=== PATIENT | female | born 1950 | race Caucasian/White ===

== ENCOUNTER → 2020-11-18 16:34 | Outpatient (BNVA) | payer MEDICARE, SELFPAY | PROVIDERS: Family Provider Nurse Practitioner; Visit Provider Nurse Practitioner | DX: Z20.828 Contact with and (suspected) exposure to other viral communicable diseases (principal); R11.2 Nausea with vomiting, unspecified; R42 Dizziness and giddiness | CPT/HCPCS: 87400; 87635 ==

== ENCOUNTER → 2021-02-27 09:03 | Outpatient (BNVA) | payer MEDICARE, SELFPAY | PROVIDERS: Family Provider Nurse Practitioner; Visit Provider Nurse Practitioner | DX: Z13.6 Encounter for screening for cardiovascular disorders (principal); Z85.3 Personal history of malignant neoplasm of breast; Z78.9 Other specified health status | CPT/HCPCS: 71046; 80053; 80061; 81000; 84443; 85025 ==

== ENCOUNTER → 2022-02-06 10:27 | Outpatient (BNVA) | payer MEDICARE, SELFPAY | PROVIDERS: Family Provider Nurse Practitioner; Visit Provider Nurse Practitioner | DX: Z13.6 Encounter for screening for cardiovascular disorders (principal); Z85.3 Personal history of malignant neoplasm of breast; K64.4 Residual hemorrhoidal skin tags | CPT/HCPCS: 80053; 80061; 85025 ==

== ENCOUNTER → 2023-03-29 14:09 | Outpatient (BNVA) | payer MEDICARE, SELFPAY | PROVIDERS: Family Provider Nurse Practitioner; Visit Provider Nurse Practitioner | DX: Z00.00 Encounter for general adult medical examination without abnormal findings (principal); Z13.6 Encounter for screening for cardiovascular disorders; Z85.3 Personal history of malignant neoplasm of breast; Z13.228 Encounter for screening for other metabolic disorders | CPT/HCPCS: 80053; 80061; 82607; 85025 ==

== ENCOUNTER → 2024-03-28 14:39 | Outpatient (BNVA) | payer MEDICARE, SELFPAY | PROVIDERS: Family Provider Nurse Practitioner; PCP Nurse Practitioner; Visit Provider Nurse Practitioner | DX: E55.9 Vitamin D deficiency, unspecified (principal) | CPT/HCPCS: 80053; 82306; 83735 ==

== ENCOUNTER 2024-04-04 08:15 | Outpatient (CLI) | payer MEDICARE, SELFPAY ==
--- NOTE | 2024-04-04 08:19 | XR_ITS ---
WS: [id number] Exam: XR cervical spine 3V* [id number] Date/Time of Exam: 04/04/2024 8:20 AM Reason For Exam: Z85.3 - Personal history of malignant neoplasm of breast No acute fracture or dislocation. There appear to be lytic lesions in the fourth fifth and sixth cerv ical vertebra. Mild degenerative anterolisthesis of C3 on C4. Degenerative disc changes from C3-C7. W ith mild spondylosis. Facet DJD at all levels. Straightening and reversal of the normal cervical C cu rve. Paraspinal soft tissues are unremarkable. Again noted are nodules in the visualized RIGHT upper lung zone. There may be some osseous destruction of the posterior RIGHT fourth rib. Recommendations: Further work-up with CT and/or nuclear bone scan could be considered. XR/XR cervical spine 3V* [id number] IMPRESSION: 1. Lytic defects in the fourth, fifth and 6 cervical vertebral bodies that may represent bone metastasis. 2. Degenerative changes as detailed above. 3. Nodules visualized in the RIGHT upper lung zone. There may be bone destructi on of the posterior RIGHT fourth rib.
--- NOTE | 2024-04-04 08:19 | XR_ITS ---
WS: [id number] Exam: XR shoulder RT min 2V* [id number] Date/Time of Exam: 04/04/2024 8:20 AM Reason For Exam: Z85.3 - Personal history of malignant neoplasm of breast No fracture or dislocation. Advanced degenerative narrowing of the glenohumeral joint with bone-on-pramod ne. Large osteophyte along the medial aspect of the humeral head. Osteopenia. No obvious bone destruc tion. Multiple nodules identified in the visualized RIGHT upper lung zone. This is suspicious for pul monary metastasis. Surgical clips along the RIGHT axilla. Recommendations: A detailed PA and lateral chest radiograph is suggested for follow-up. XR/XR shoulder RT min 2V* [id number] IMPRESSION: 1. Advanced degenerative change of the glenohumeral joint with [id number]. Os teopenia. 2. Numerous soft tissue nodules in the visualized RIGHT upper lung zone that ma y represent pulmonary metastatic disease.
--- NOTE | 2024-04-04 08:19 | XRR_ITS ---
PROCEDURE INFORMATION: Exam: XR Right Wrist Exam date and time: 04/04/2024 8:24 AM Age: 73 years old Clinical indication: Pain; Wrist; Right; Patient HX: Checking for bone cancer, limited mobility in RT arm; Additional info: Z85.3 - personal history of malignant neoplasm of breast TECHNIQUE: Imaging protocol: Radiologic exam of the right wrist. Views: 3 or more views. COMPARISON: No relevant prior studies available. FINDINGS: Bones/joints: Mild diffuse degenerative changes throughout the wrist, most prominent at the 1st carpometacarpal joint and at the radiocarpal joint. No acute fracture or dislocation. Soft tissues: Visualized soft tissues are within normal limits. XR/XR wrist RT min 3V* [id number] IMPRESSION: 1. Mild diffuse degenerative changes throughout the wrist, most prominent at the 1st carpometacarpal joint and at the radiocarpal joint. 2. No obvious osseous metastatic lesion.
--- NOTE | 2024-04-04 08:19 | XR_ITS ---
WS: [id number] Exam: [place] [id number] Date/Time of Exam: 04/04/2024 8:20 AM Reason For Exam: Z85.3 - Personal history of malignant neoplasm of breast No fracture or dislocation. Advanced degenerative changes at the RIGHT shoulder as previously describ ed. Soft tissues are unremarkable. No obvious bone destruction. IMPRESSION1. No fracture or bone destruction. 2. 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
== END 2024-04-04 08:16 | disposition home or self-care (01) ==
LOC: RAD 08:18
PROVIDERS: Family Provider Nurse Practitioner; PCP Nurse Practitioner; Visit Provider Nurse Practitioner
DX: Z85.3 Personal history of malignant neoplasm of breast (principal); M19.011 Primary osteoarthritis, right shoulder; M85.811 Other specified disorders of bone density and structure, right shoulder; R91.8 Other nonspecific abnormal finding of lung field; M50.30 Other cervical disc degeneration, unspecified cervical region
CPT/HCPCS: 72040; 73030; 73060; 73110

== ENCOUNTER 2024-04-11 08:38 | Outpatient (CLI) | payer MEDICARE, SELFPAY ==
--- NOTE | 2024-04-11 09:00 | PETR_ITS ---
PROCEDURE INFORMATION: Exam: PET/CT Skull Base to Mid-thigh Exam date and time: 04/11/2024 9:42 AM Age: 73 years old Clinical indication: Abnormal findings; Solitary pulmonary nodule; Patient HX: HX of breast cancer; Additional info: R91.1 - solitary pulmonary nodule, 2017 right breast cancer LABS AND CLINICAL REPORTS: Glucose: 112 mg/dl Treatment strategy for malignancy (PET staging): Initial Staging (PI) TECHNIQUE: Imaging protocol: Following at least four-hour fasting and following the injection of radiopharmaceutical, low dose CT images were obtained. Then, PET images were obtained. Attenuation corrected images were constructed using the CT scan. Fused images of PET and CT were reviewed. The standardized uptake values (SUV) reported below are maximum values within a region of interest, expressed in gm/ml. Exam includes orbital meatal line to mid-thigh. Radiopharmaceutical: 13.3 mCi F-18 FDG (Fluorodeoxyglucose), IV. Time of imaging post radiopharmaceutical administration: 1 hour Injection site: Left antecubital COMPARISON: Right shoulder x-ray series and right humerus x-ray series 03/15/2024, the CR XR cervical spine 3V* [id number] 04/04/2024 8:24 AM, chest x-ray 02/27/2021 FINDINGS: Brain: Visualized brain has normal physiologic uptake. Dental: Uptake in the region of posterior left mandibular teeth is noted likely representing periodontal disease, SUV max 3.9. Pharynx: No abnormal uptake. Larynx: No abnormal uptake. Thyroid: Low-density nodularity of the bilateral thyroid lobes is noted without elevated uptake compatible with benign findings. Lungs, pleura and trachea: There are multifocal regions of lobulated nodular radiotracer avid pleural thickening throughout the right hemithorax, SUV max 14.0. This uptake is greatest within a region soft tissue density nodule where T in the anteromedial aspect of the right middle lobe on series 3, image 104 measuring 1.9 x 1.7 cm. A right lower lobe/right inferior perihilar solid nodule measures 1.9 x 1.4 cm on series 3, image 98, SUV max 8.2. Several solid pleural based nodules in the region of the right major and minor fissures and to a lesser extent along the left major fissure are noted, some of which are radiotracer avid on the right. For example, a nodule based on the major fissure measuring 1.5 x 1.2 cm on series 3, image 101 demonstrates an. A pleural based soft tissue density nodule in the anteromedial left upper lobe is not radiotracer avid, measuring 1.4 x 1.0 cm on series 3, image 100. A solid left lower lobe nodule is not radiotracer avid on series 3, image 84 measuring 6 mm. SUV max 4.4. A 0.7 x 0.1 cm nodule based on the major fissure on series 3, image 87 on the left is not radiotracer avid. Heart: Normal physiologic uptake. Mediastinal space: No abnormal uptake. Diaphragm: See Liver findings below. Liver: A focus of uptake at the junction of the anterior right hemidiaphragm and dome of the liver is noted without a well-defined correlating lesion on the CT images, SUV max 5.4 on series 12, image 115. Assessment of the liver parenchyma is limited by lack of intravenous contrast. There is a possible low-density lesion in the dome of the liver in this region measuring 2.4 cm in diameter. Gallbladder and biliary ducts: No abnormal uptake. Pancreas: No abnormal uptake. Spleen: No abnormal uptake. Adrenal glands: No abnormal uptake. Kidneys and ureters: Normal physiologic uptake. Stomach and bowel: No abnormal uptake. Vasculature: No abnormal uptake. There are diffuse atherosclerotic changes. Lymph nodes: A radiotracer avid pretracheal lymph node measures 1.9 cm on series 3, image 74, SUV max 12.0. Abnormal uptake in the right hilar region is noted, SUV max 8.7 on series 3, image 87 where there is evidence of an approximately 1.3 cm lymph node. Skeleton: Degenerative changes in the spine are present.The bones appear demineralized. Extensive right hip primary osteoarthritic changes are noted. Soft tissues: There are postoperative changes right axillary lymph node dissection and right mastectomy without elevated uptake in the operative beds. METRICS: Mediastinal blood pool: SUV max 1.9 PET/PET skull to thigh INIT [id number] IMPRESSION: 1. There are postoperative changes right axillary lymph node dissection and right mastectomy without elevated uptake in the operative beds. 2. Multifocal regions of radiotracer avid pleural based nodularity throughout the right hemithorax are noted compatible with malignancy. 3. A right lower lobe/inferior right perihilar nodule is radiotracer avid consistent with malignancy. Left-sided pulmonary nodules are not radiotracer avid. 4. Radiotracer avid mediastinal and right hilar lymphadenopathy is consistent with metastases. 5. Abnormal uptake at the junction of the right hemidiaphragm in the dome of the liver is noted compatible with a metastasis, with a possible corresponding lesion within the liver. Assessment of this region is limited without intravenous contrast. Consider dedicated CT or MRI of the abdomen with intravenous contrast for further assessment. 6. No evidence of radiotracer avid osseous metastases. 7. Additional nonurgent findings as detailed above.
== END 2024-04-11 08:39 | disposition home or self-care (01) ==
LOC: RAD 08:38
PROVIDERS: Family Provider Nurse Practitioner; PCP Nurse Practitioner; Visit Provider Nurse Practitioner
DX: R91.1 Solitary pulmonary nodule (principal); R93.7 Abnormal findings on diagnostic imaging of other parts of musculoskeletal system; Z90.11 Acquired absence of right breast and nipple; R93.2 Abnormal findings on diagnostic imaging of liver and biliary tract; R93.5 Abnormal findings on diagnostic imaging of other abdominal regions, including retroperitoneum
CPT/HCPCS: 78815; A9552

== ENCOUNTER 2024-04-27 16:00 | Oncology outpatient (recurring) (ONCR) | payer MEDICARE, SELFPAY ==
[2024-04-27 15:44] LABS: Basophils # 0.1 10^3/uL (0.0-0.1); Eosinophils # 0.2 10^3/uL (0.0-0.8); Eosinophils % 1.8 %; Hematocrit 35.1 % (36-47); Lymphocytes # 1.1 10^3/uL (0.8-4.8); Lymphocytes % 12.9 %; Mean Corpuscular HGB Conc 31.9 g/dL (30-55); Mean Corpuscular Hemoglobin 28.9 pg (27-33); Mean Corpuscular Volume 90.5 fl (85-98); Mean Platelet Volume 9.5 fL (7.4-10.4); Monocytes % 11.9 %; Neutrophils % 72.2 %; Nucleated Red Blood Cells % 0 %; Platelet Count 379 10^3/cmm (157-399); Red Blood Count 3.88 10^6/uL (3.85-5.65); Red Cell Distribution Width 14.7 % (12.1-15.1); White Blood Count 8.31 10^3/uL (3.29-11.43)
[2024-04-27 16:08] LABS: Alanine Aminotransferase 10 U/L (0-33); Albumin Level 4.2 g/dL (3.5-5.2); Alkaline Phosphatase 86 U/L (35-105); Anion Gap 16.3 (5-19); Aspartate Amino Transferase 25 U/L (0-32); Blood Urea Nitrogen 17 mg/dL (8-23); CA 15-3 43.5 U/mL (0-25); Calcium 9.4 mg/dL (8.5-10.5); Carbon Dioxide 25 mmol/L (22-29); Chloride 100 mmol/L (98-107); Creatinine Clr Calc Pharmacy 58.1739; Globulin 3.2 g/dL (1.3-4.6); Glucose 128 mg/dL (65-115); Osmolality Calculated 287 mOsm/kg (285-295); Potassium 4.3 mmol/L (3.5-5.1); Sodium 137 mmol/L (136-145); Total Bilirubin 0.2 mg/dL (0.15-1.2); Total Protein 7.4 g/dL (6.6-8.7)
== END 2024-05-10 23:59 | disposition home or self-care (01) ==
PROVIDERS: PCP Nurse Practitioner; Visit Provider Internal Medicine Medical Oncology
DX: Z53.9 Procedure and treatment not carried out, unspecified reason (principal); C50.411 Malignant neoplasm of upper-outer quadrant of right female breast
CPT/HCPCS: 36415; 80053; 85025; 86300; 99215

== ENCOUNTER 2024-05-17 13:05 | Outpatient (CLI) | payer MEDICARE, SELFPAY ==
--- NOTE | 2024-05-17 13:20 | XR_ITS ---
WS: [id number] DEXA (DUAL ENERGY X-RAY ABSORPTIOMETRY) Bone mineral density was performed using a Kigo machine. HISTORY: ASYMPTOMATIC MENOPAUSAL STATE COMPARISON: None available. Lumbar spine BMD (L1-L4): 0.835 g/cm2 T score: -2.9 Z score: -1.0 Total hip BMD: Left: 0.585 g/cm2. T score: -3.4 Z score: -1.7 Right: 0.627 g/cm2. T score: -3.0 Z score: -1.4 10 year probability of a major osteoporotic fracture is 23.7%. XR/XR DEXA axial skeleton* 00095 IMPRESSION: OSTEOPOROSIS based upon the WHO classification for females.
== END 2024-05-17 13:06 | disposition home or self-care (01) ==
LOC: RAD 13:07
PROVIDERS: PCP Nurse Practitioner; Visit Provider Internal Medicine
DX: Z13.820 Encounter for screening for osteoporosis (principal); Z78.0 Asymptomatic menopausal state; M81.0 Age-related osteoporosis without current pathological fracture
CPT/HCPCS: 77080

== ENCOUNTER 2024-09-05 08:45 | Oncology outpatient (recurring) (ONCR) | payer MEDICARE, SELFPAY ==
[2024-08-17 12:00] LABS: Basophils # 0.1 10^3/uL (0.0-0.1); Basophils % 2.8 %; Eosinophils # 0.1 10^3/uL (0.0-0.8); Eosinophils % 3.4 %; Hematocrit 35.5 % (36-47); Lymphocytes # 1.2 10^3/uL (0.8-4.8); Lymphocytes % 34.6 %; Mean Corpuscular HGB Conc 32.1 g/dL (30-55); Mean Corpuscular Volume 96.5 fl (85-98); Mean Platelet Volume 8.8 fL (7.4-10.4); Monocytes # 0.7 10^3/uL (0.2-0.9); Monocytes % 20.7 %; Neutrophils # 1.35 10^3/uL (1.8-7.7); Neutrophils % 38.2 %; Nucleated Red Blood Cells % 0 %; Platelet Count 296 10^3/cmm (157-399); Red Blood Count 3.68 10^6/uL (3.85-5.65); Red Cell Distribution Width 19.3 % (12.1-15.1); White Blood Count 3.53 10^3/uL (3.29-11.43)
[2024-08-17 12:24] LABS: Alanine Aminotransferase 28 U/L (0-33); Albumin Level 4.2 g/dL (3.5-5.2); Alkaline Phosphatase 74 U/L (35-105); Anion Gap 11.1 (5-19); Aspartate Amino Transferase 23 U/L (0-32); Blood Urea Nitrogen 17 mg/dL (8-23); CA 15-3 91.2 U/mL (0-25); Calcium 9.2 mg/dL (8.5-10.5); Carbon Dioxide 29 mmol/L (22-29); Chloride 102 mmol/L (98-107); Creatinine Clr Calc Pharmacy 50.7991; Globulin 2.2 g/dL (1.3-4.6); Glucose 76 mg/dL (65-115); Osmolality Calculated 286 mOsm/kg (285-295); Potassium 4.1 mmol/L (3.5-5.1); Sodium 138 mmol/L (136-145); Total Bilirubin 0.2 mg/dL (0.15-1.2); Total Protein 6.4 g/dL (6.6-8.7)
[2024-08-17 16:29] LABS: Ferritin 99 ng/mL (15-150); Iron 108 ug/dL (37-145); Lactate Dehydrogenase 160 U/L (135-214); Percent Saturation 36.8 % (20-50); Total Iron Binding Capacity 293 mcg/dl; Unsaturated Iron Binding 185 ug/dL (112-347)
[2024-08-17 16:32] LABS: Vitamin B12 761 pg/mL (232-1245)
[2024-08-17 17:07] LABS: Folate Level 16.9 ng/mL (4.8-37.3)
[2024-09-05 09:58] LABS: Basophils # 0.1 10^3/uL (0.0-0.1); Basophils % 4.2 %; Eosinophils # 0.1 10^3/uL (0.0-0.8); Eosinophils % 1.6 %; Hematocrit 36.4 % (36-47); Lymphocytes # 0.6 10^3/uL (0.8-4.8); Lymphocytes % 19.4 %; Mean Corpuscular Hemoglobin 31.9 pg (27-33); Mean Corpuscular Volume 96.8 fl (85-98); Mean Platelet Volume 8.9 fL (7.4-10.4); Monocytes # 0.3 10^3/uL (0.2-0.9); Neutrophils # 1.99 10^3/uL (1.8-7.7); Neutrophils % 64.5 %; Nucleated Red Blood Cells % 0 %; Platelet Count 386 10^3/cmm (157-399); Red Blood Count 3.76 10^6/uL (3.85-5.65); Red Cell Distribution Width 20.1 % (12.1-15.1); White Blood Count 3.09 10^3/uL (3.29-11.43)
[2024-09-05 10:25] LABS: Alanine Aminotransferase 30 U/L (0-33); Albumin Level 4.2 g/dL (3.5-5.2); Alkaline Phosphatase 74 U/L (35-105); Anion Gap 13.4 (5-19); Aspartate Amino Transferase 27 U/L (0-32); Blood Urea Nitrogen 14 mg/dL (8-23); CA 15-3 111.2 U/mL (0-25); Calcium 9.7 mg/dL (8.5-10.5); Carbon Dioxide 29 mmol/L (22-29); Chloride 102 mmol/L (98-107); Creatinine Clr Calc Pharmacy 63.4845; Globulin 2.8 g/dL (1.3-4.6); Glucose 107 mg/dL (65-115); Osmolality Calculated 291 mOsm/kg (285-295); Potassium 4.4 mmol/L (3.5-5.1); Sodium 140 mmol/L (136-145); Total Bilirubin 0.5 mg/dL (0.15-1.2)
[2024-09-05] MEDS: zoledronic acid 5 MG in empty flexible container 1 EACH 400 MG IV (11:17)
[2024-09-05 11:37] VITALS: BP 132/65; PULSE 65; RESP 16; TEMP 37.1; O2SAT 98
[2024-09-05] MEDS: fulvestrant 250 mg/5 mL Syringe 500 MG IM (12:10)
[2024-09-05 16:59] LABS: Magnesium 2.1 mg/dL (1.7-2.3); Thyroid Stimulating Hormone 0.95 uIU/mL (0.27-4.20); Vitamin B12 679 pg/mL (232-1245)
== END 2024-09-09 23:59 | disposition home or self-care (01) ==
PROVIDERS: Internal Medicine; Nurse Practitioner; PCP Nurse Practitioner; Visit Provider Internal Medicine Hematology & Oncology
DX: Z53.9 Procedure and treatment not carried out, unspecified reason (principal); C50.411 Malignant neoplasm of upper-outer quadrant of right female breast; C78.00 Secondary malignant neoplasm of unspecified lung; Z51.11 Encounter for antineoplastic chemotherapy; Z79.899 Other long term (current) drug therapy; Z90.11 Acquired absence of right breast and nipple; Z79.818 Long term (current) use of other agents affecting estrogen receptors and estrogen levels; Z17.0 Estrogen receptor positive status [ER+]; D64.9 Anemia, unspecified; R25.1 Tremor, unspecified; R53.83 Other fatigue; M81.0 Age-related osteoporosis without current pathological fracture
CPT/HCPCS: 36415; 80053; 82607; 82728; 82746; 83010; 83540; 83550; 83615; 83735; 84443; 85025; 86300; 96365; 96402; 99214; 99215; J3489; J9395

== ENCOUNTER 2024-10-05 10:15 | Oncology outpatient (recurring) (ONCR) | payer MEDICARE, SELFPAY ==
--- NOTE | 2024-09-22 12:00 | PETR_ITS ---
PROCEDURE INFORMATION: Exam: PET/CT Skull Base to Mid-thigh Exam date and time: 09/22/2024 1:12 PM Age: 74 years old Clinical indication: Condition or disease; Primary cancer: Breast cancer right; Follow-up oncological assessment; Prior surgery; Surgery date: 6+ months; Surgery type: Mastectomy; Additional info: Followup post 3 months of treatment and compare to April 2024 LABS AND CLINICAL REPORTS: Glucose: 111 mg/dl Treatment strategy for malignancy (PET staging): Restaging (PS) TECHNIQUE: Imaging protocol: Following at least four-hour fasting and following the injection of radiopharmaceutical, low dose CT images were obtained. Then, PET images were obtained. Attenuation corrected images were constructed using the CT scan. Fused images of PET and CT were reviewed. The standardized uptake values (SUV) reported below are maximum values within a region of interest, expressed in gm/ml. Exam includes orbital meatal line to mid-thigh. SUV normalization method: BodyWeight Radiopharmaceutical: 11.41 mCi F-18 FDG (Fluorodeoxyglucose), IV. Time of imaging post radiopharmaceutical administration: 49 minutes Injection site: left ac COMPARISON: PT PET skull to thigh INIT [id number] 04/11/2024 9:42 AM FINDINGS: Brain: Visualized brain has normal physiologic uptake. Teeth: Carious left molar with FDG uptake showing SUV max 8.5 on axial image 30. Pharynx: No abnormal uptake. Larynx: No abnormal uptake. Thyroid: Stable non FDG avid subcentimeter thyroid nodules require no dedicated imaging follow-up. Lungs, pleura and trachea: Significantly decreased FDG avid nodular right pleural thickening with index anteromedial right pleural thickening measuring 5 mm thickness with SUV max 5.8 on axial image 113, previously 14 mm with SUV max 14. Index posteromedial basal right pleural thickening measures 9 mm in thickness and shows SUV max 3.7 on axial image 125, previously 15 mm with SUV max 8.9. Index perifissural nodularity measures 6 mm thickness with SUV max 4.1 on axial image 111, previously 12 mm with SUV max 7.5. Stable non FDG avid 3 mm left upper lobe nodule on axial image 70. Stable intrapulmonary lymph node along the left major fissure without FDG avidity on axial image 94. Previous left lower lobe nodule has resolved. Heart: Normal physiologic uptake. Mediastinal space: No abnormal uptake. Liver: No abnormal uptake. Gallbladder and biliary ducts: No abnormal uptake. Pancreas: No abnormal uptake. Spleen: No abnormal uptake. Adrenal glands: No abnormal uptake. Kidneys and ureters: Normal physiologic uptake. Stomach and bowel: No abnormal uptake. Vasculature: No abnormal uptake. Mild systemic atherosclerotic calcification without aortic aneurysm. Lymph nodes: Decreased lower pretracheal node measuring 9 mm in the short axis on axial image 83 with SUV max 11.8, previously 18 mm with SUV max 12.0. Right hilar FDG uptake shows SUV max 8.5 on axial image 106 without discretely measurable node, previously 8.2. Developed subcarinal node uptake with SUV max 14.6, measures 8 mm in the short axis. Developed left hilar FDG uptake shows SUV max 3.7 on axial image 92 without discretely measurable node. Skeleton: Apparent FDG uptake at posteromedial right 5th rib shows SUV max 5.5 on axial image 68 with suggested lucency (axial image 69). Apparent development of nonaggressive lucent lesion at the anterior right 4th rib measures 1.2 cm in length with FDG uptake showing SUV max 4.2 on axial image 102. Degenerative changes along the spine, shoulders and hips. Soft tissues: No abnormal uptake in the visualized head, neck, chest, abdomen, pelvis, and extremities. Prior right mastectomy. Right axillary surgical clips. METRICS: Mediastinal blood pool: SUV mean 2.0 Liver uptake: SUV mean 2.1 PET/PET skull to thigh SUBS [id number] IMPRESSION: 1. Mixed treatment response. 2. Much improved right pleural metastatic disease. 3. Improved lower right paratracheal lymphadenopathy, decreased size FDG avid right hilar lymphadenopathy, and developed abnormal FDG uptake at subcarinal node as well as mildly at the left hilum. 4. Suspect metastatic lesions at the anterior right 4th and posteromedial right 5th ribs. 5. Dental disease with metabolically active carious left molar, possibly infectious or inflammatory.
[2024-09-28 13:13] LABS: Basophils # 0.1 10^3/uL (0.0-0.1); Basophils % 2.9 %; Eosinophils # 0.1 10^3/uL (0.0-0.8); Eosinophils % 2.9 %; Lymphocytes # 0.7 10^3/uL (0.8-4.8); Lymphocytes % 20.7 %; Mean Corpuscular HGB Conc 32.6 g/dL (30-55); Mean Corpuscular Hemoglobin 33.5 pg (27-33); Mean Corpuscular Volume 102.9 fl (85-98); Monocytes # 0.4 10^3/uL (0.2-0.9); Monocytes % 10.4 %; Neutrophils # 2.17 10^3/uL (1.8-7.7); Neutrophils % 62.5 %; Nucleated Red Blood Cells % 0 %; Platelet Count 418 10^3/cmm (157-399); Red Cell Distribution Width 19.1 % (12.1-15.1); White Blood Count 3.47 10^3/uL (3.29-11.43)
[2024-09-28 13:32] LABS: Slide Review Slide Review Perform
[2024-09-28 13:35] LABS: Alanine Aminotransferase 18 U/L (0-33); Albumin Level 4.2 g/dL (3.5-5.2); Alkaline Phosphatase 78 U/L (35-105); Anion Gap 10.3 (5-19); Blood Urea Nitrogen 13 mg/dL (8-23); CA 15-3 102.7 U/mL (0-25); Calcium 9.4 mg/dL (8.5-10.5); Carbon Dioxide 29 mmol/L (22-29); Chloride 103 mmol/L (98-107); Creatinine Clr Calc Pharmacy 63.4845; Globulin 2.9 g/dL (1.3-4.6); Glucose 121 mg/dL (65-115); Osmolality Calculated 287 mOsm/kg (285-295); Potassium 4.3 mmol/L (3.5-5.1); Sodium 138 mmol/L (136-145); Total Bilirubin 0.2 mg/dL (0.15-1.2); Total Protein 7.1 g/dL (6.6-8.7)
[2024-09-28 13:43] LABS: Aspartate Amino Transferase 23 U/L (0-32)
[2024-10-05 13:58] VITALS: BP 120/78; PULSE 78; RESP 18; TEMP 36.6; O2SAT 98
[2024-10-05] MEDS: fulvestrant 250 mg/5 mL Syringe 500 MG IM (13:58)
== END 2024-10-10 23:59 | disposition home or self-care (01) ==
PROVIDERS: Nurse Practitioner; PCP Nurse Practitioner; Visit Provider Internal Medicine
DX: Z51.11 Encounter for antineoplastic chemotherapy (principal); Z79.818 Long term (current) use of other agents affecting estrogen receptors and estrogen levels; C78.00 Secondary malignant neoplasm of unspecified lung; C50.411 Malignant neoplasm of upper-outer quadrant of right female breast; Z53.9 Procedure and treatment not carried out, unspecified reason
CPT/HCPCS: 36415; 78815; 80053; 85025; 86300; 96402; 99213; A9552; J9395

== ENCOUNTER 2024-11-02 10:55 | Oncology outpatient (recurring) (ONCR) | payer MEDICARE, SELFPAY ==
[2024-11-02 11:40] LABS: Basophils # 0.1 10^3/uL (0.0-0.1); Basophils % 3.2 %; Eosinophils # 0.1 10^3/uL (0.0-0.8); Hematocrit 33.7 % (36-47); Lymphocytes # 0.7 10^3/uL (0.8-4.8); Mean Corpuscular HGB Conc 33.2 g/dL (30-55); Mean Corpuscular Hemoglobin 35.4 pg (27-33); Mean Corpuscular Volume 106.6 fl (85-98); Mean Platelet Volume 8.9 fL (7.4-10.4); Monocytes # 0.4 10^3/uL (0.2-0.9); Monocytes % 10.2 %; Neutrophils # 2.22 10^3/uL (1.8-7.7); Nucleated Red Blood Cells % 0 %; Platelet Count 252 10^3/cmm (157-399); Red Blood Count 3.16 10^6/uL (3.85-5.65); Red Cell Distribution Width 15.3 % (12.1-15.1); White Blood Count 3.42 10^3/uL (3.29-11.43)
[2024-11-02 11:58] LABS: Alanine Aminotransferase 20 U/L (0-33); Alkaline Phosphatase 64 U/L (35-105); Anion Gap 16.2 (5-19); Aspartate Amino Transferase 24 U/L (0-32); Blood Urea Nitrogen 17 mg/dL (8-23); Calcium 8.9 mg/dL (8.5-10.5); Carbon Dioxide 24 mmol/L (22-29); Chloride 101 mmol/L (98-107); Creatinine Clr Calc Pharmacy 58.9696; Globulin 2.5 g/dL (1.3-4.6); Glucose 113 mg/dL (65-115); Osmolality Calculated 286 mOsm/kg (285-295); Potassium 4.2 mmol/L (3.5-5.1); Sodium 137 mmol/L (136-145); Total Bilirubin 0.3 mg/dL (0.15-1.2); Total Protein 6.5 g/dL (6.6-8.7)
[2024-11-02] MEDS: fulvestrant 250 mg/5 mL Syringe 500 MG IM (13:27)
[2024-11-03 12:03] LABS: CA 15-3 73.1 U/mL (0-25); Lactate Dehydrogenase 242 U/L (135-214)
== END 2024-11-10 23:59 | disposition home or self-care (01) ==
PROVIDERS: PCP Nurse Practitioner; Visit Provider Internal Medicine
DX: Z51.11 Encounter for antineoplastic chemotherapy (principal); C78.01 Secondary malignant neoplasm of right lung; C79.89 Secondary malignant neoplasm of other specified sites; Z85.3 Personal history of malignant neoplasm of breast; M81.0 Age-related osteoporosis without current pathological fracture; D64.9 Anemia, unspecified; Z90.11 Acquired absence of right breast and nipple; Z79.818 Long term (current) use of other agents affecting estrogen receptors and estrogen levels; Z92.23 Personal history of estrogen therapy
CPT/HCPCS: 36415; 80053; 83615; 85025; 86300; 96402; 96409; 99213; J9395

== ENCOUNTER → 2024-11-20 08:20 | Outpatient (BNVA) | payer MEDICARE, SELFPAY | PROVIDERS: PCP Nurse Practitioner; Visit Provider Internal Medicine | DX: C50.919 Malignant neoplasm of unspecified site of unspecified female breast (principal); C78.00 Secondary malignant neoplasm of unspecified lung; R25.1 Tremor, unspecified; R53.83 Other fatigue | CPT/HCPCS: 80053; 85025; 86300 ==

== ENCOUNTER 2024-12-06 12:21 | Oncology outpatient (recurring) (ONCR) | payer MEDICARE, SELFPAY ==
[2024-12-06] MEDS: fulvestrant 250 mg/5 mL Syringe 500 MG IM (13:50)
[2024-12-06 13:55] LABS: Basophils % 1.5 %; Eosinophils % 0.8 %; Hematocrit 35.1 % (36-47); Lymphocytes % 38.5 %; Mean Corpuscular HGB Conc 33.3 g/dL (30-55); Mean Corpuscular Hemoglobin 35.7 pg (27-33); Mean Platelet Volume 8.7 fL (7.4-10.4); Monocytes # 0.7 10^3/uL (0.2-0.9); Monocytes % 24.5 %; Neutrophils % 34.7 %; Nucleated Red Blood Cells % 0 %; Platelet Count 209 10^3/cmm (157-399); Red Blood Count 3.28 10^6/uL (3.85-5.65); White Blood Count 2.65 10^3/uL (3.29-11.43)
[2024-12-06 13:57] LABS: Neutrophils # 0.92 10^3/uL (1.8-7.7)
[2024-12-06 14:30] LABS: Alanine Aminotransferase 25 U/L (0-33); Albumin Level 4.2 g/dL (3.5-5.2); Alkaline Phosphatase 70 U/L (35-105); Anion Gap 11.4 (5-19); Aspartate Amino Transferase 28 U/L (0-32); Blood Urea Nitrogen 12 mg/dL (8-23); CA 15-3 70.9 U/mL (0-25); Calcium 9.6 mg/dL (8.5-10.5); Carbon Dioxide 29 mmol/L (22-29); Chloride 105 mmol/L (98-107); Creatinine Clr Calc Pharmacy 59.3337; Globulin 2.7 g/dL (1.3-4.6); Glucose 98 mg/dL (65-115); Osmolality Calculated 292 mOsm/kg (285-295); Potassium 4.4 mmol/L (3.5-5.1); Sodium 141 mmol/L (136-145); Total Bilirubin 0.2 mg/dL (0.15-1.2); Total Protein 6.9 g/dL (6.6-8.7)
== END 2024-12-08 23:59 | disposition home or self-care (01) ==
PROVIDERS: Nurse Practitioner Family; PCP Nurse Practitioner; Visit Provider Internal Medicine
DX: Z51.11 Encounter for antineoplastic chemotherapy (principal); C50.411 Malignant neoplasm of upper-outer quadrant of right female breast; Z17.0 Estrogen receptor positive status [ER+]; C78.01 Secondary malignant neoplasm of right lung; C79.89 Secondary malignant neoplasm of other specified sites; M81.0 Age-related osteoporosis without current pathological fracture; D64.9 Anemia, unspecified; L85.8 Other specified epidermal thickening; Z79.818 Long term (current) use of other agents affecting estrogen receptors and estrogen levels; Z79.899 Other long term (current) drug therapy; Z90.11 Acquired absence of right breast and nipple; Z92.23 Personal history of estrogen therapy
CPT/HCPCS: 11102; 80053; 85025; 86300; 96402; 99203; 99214; J9395

== ENCOUNTER → 2024-12-14 08:09 | Outpatient (BNVA) | payer MEDICARE, SELFPAY | PROVIDERS: PCP Nurse Practitioner; Visit Provider Nurse Practitioner | DX: C50.411 Malignant neoplasm of upper-outer quadrant of right female breast (principal) | CPT/HCPCS: 85025 ==

== ENCOUNTER → 2024-12-25 11:14 | Outpatient (BNVA) | payer MEDICARE, SELFPAY | PROVIDERS: PCP Nurse Practitioner; Visit Provider Nurse Practitioner | DX: C50.411 Malignant neoplasm of upper-outer quadrant of right female breast (principal); C50.919 Malignant neoplasm of unspecified site of unspecified female breast; C78.00 Secondary malignant neoplasm of unspecified lung | CPT/HCPCS: 80053; 85025; 86300 ==

== ENCOUNTER → 2025-01-02 08:04 | Outpatient (BNVA) | payer MEDICARE, SELFPAY | PROVIDERS: PCP Nurse Practitioner; Visit Provider Dermatology | DX: D03.59 Melanoma in situ of other part of trunk (principal); C44.329 Squamous cell carcinoma of skin of other parts of face | CPT/HCPCS: 13132; 17311; 99213 ==

== ENCOUNTER 2025-01-03 13:24 | Oncology outpatient (recurring) (ONCR) | payer MEDICARE, SELFPAY ==
[2025-01-03] MEDS: fulvestrant 250 mg/5 mL Syringe 500 MG IM (14:49)
== END 2025-01-08 23:59 | disposition home or self-care (01) ==
PROVIDERS: PCP Nurse Practitioner; Visit Provider Internal Medicine
DX: Z51.11 Encounter for antineoplastic chemotherapy (principal); C50.411 Malignant neoplasm of upper-outer quadrant of right female breast; C78.01 Secondary malignant neoplasm of right lung; C43.59 Malignant melanoma of other part of trunk; Z17.0 Estrogen receptor positive status [ER+]; M81.0 Age-related osteoporosis without current pathological fracture; D64.9 Anemia, unspecified; Z90.11 Acquired absence of right breast and nipple; Z79.818 Long term (current) use of other agents affecting estrogen receptors and estrogen levels; Z79.899 Other long term (current) drug therapy; D70.1 Agranulocytosis secondary to cancer chemotherapy; T45.1X5A Adverse effect of antineoplastic and immunosuppressive drugs, initial encounter
CPT/HCPCS: 96402; 99213; J9395

== ENCOUNTER → 2025-01-23 08:11 | Outpatient (BNVA) | payer MEDICARE, SELFPAY | PROVIDERS: PCP Nurse Practitioner; Visit Provider Dermatology | DX: Z08 Encounter for follow-up examination after completed treatment for malignant neoplasm (principal); Z85.828 Personal history of other malignant neoplasm of skin; D03.59 Melanoma in situ of other part of trunk | CPT/HCPCS: 11603; 12032; 99212 ==

== ENCOUNTER → 2025-01-25 08:03 | Outpatient (BNVA) | payer MEDICARE, SELFPAY | PROVIDERS: PCP Nurse Practitioner; Visit Provider Nurse Practitioner | DX: C50.919 Malignant neoplasm of unspecified site of unspecified female breast (principal); C78.00 Secondary malignant neoplasm of unspecified lung | CPT/HCPCS: 80053; 85025; 86300 ==

== ENCOUNTER 2025-01-31 10:13 | Oncology outpatient (recurring) (ONCR) | payer MEDICARE, SELFPAY ==
[2025-01-31] MEDS: fulvestrant 250 mg/5 mL Syringe 500 MG IM (11:23)
== END 2025-02-07 23:59 | disposition home or self-care (01) ==
PROVIDERS: PCP Nurse Practitioner; Visit Provider Internal Medicine
DX: Z51.11 Encounter for antineoplastic chemotherapy (principal); C78.01 Secondary malignant neoplasm of right lung; C79.89 Secondary malignant neoplasm of other specified sites; C43.59 Malignant melanoma of other part of trunk; Z85.3 Personal history of malignant neoplasm of breast; R03.0 Elevated blood-pressure reading, without diagnosis of hypertension; M81.0 Age-related osteoporosis without current pathological fracture; D64.9 Anemia, unspecified; Z90.11 Acquired absence of right breast and nipple; Z79.818 Long term (current) use of other agents affecting estrogen receptors and estrogen levels
CPT/HCPCS: 96402; 99214; J9395

== ENCOUNTER → 2025-02-01 11:02 | Outpatient (BNVA) | payer MEDICARE, SELFPAY | PROVIDERS: PCP Nurse Practitioner; Visit Provider Dermatology | DX: Z08 Encounter for follow-up examination after completed treatment for malignant neoplasm (principal); Z86.006 Personal history of melanoma in-situ; Z85.828 Personal history of other malignant neoplasm of skin; L82.1 Other seborrheic keratosis; L81.4 Other melanin hyperpigmentation; L57.0 Actinic keratosis | CPT/HCPCS: 17000; 99213 ==

== ENCOUNTER → 2025-02-21 07:59 | Outpatient (BNVA) | payer MEDICARE, SELFPAY | PROVIDERS: PCP Nurse Practitioner; Visit Provider Nurse Practitioner | DX: L85.8 Other specified epidermal thickening (principal); C50.919 Malignant neoplasm of unspecified site of unspecified female breast; C78.00 Secondary malignant neoplasm of unspecified lung; D64.9 Anemia, unspecified; M81.0 Age-related osteoporosis without current pathological fracture; C50.411 Malignant neoplasm of upper-outer quadrant of right female breast | CPT/HCPCS: 80053; 83615; 85025 ==

== ENCOUNTER 2025-02-28 12:29 | Oncology outpatient (recurring) (ONCR) | payer MEDICARE, SELFPAY ==
[2025-02-28] MEDS: fulvestrant 250 mg/5 mL Syringe 500 MG IM (13:26)
== END 2025-03-10 23:59 | disposition home or self-care (01) ==
PROVIDERS: PCP Nurse Practitioner; Visit Provider Nurse Practitioner Family
DX: Z51.11 Encounter for antineoplastic chemotherapy (principal); C50.411 Malignant neoplasm of upper-outer quadrant of right female breast; C78.01 Secondary malignant neoplasm of right lung; C79.89 Secondary malignant neoplasm of other specified sites; M81.0 Age-related osteoporosis without current pathological fracture; D64.9 Anemia, unspecified; R03.0 Elevated blood-pressure reading, without diagnosis of hypertension; Z17.0 Estrogen receptor positive status [ER+]; Z90.11 Acquired absence of right breast and nipple; Z79.818 Long term (current) use of other agents affecting estrogen receptors and estrogen levels; Z79.899 Other long term (current) drug therapy
CPT/HCPCS: 96402; 99214; J9395

== ENCOUNTER → 2025-03-26 08:13 | Outpatient (BNVA) | payer MEDICARE, SELFPAY | PROVIDERS: PCP Nurse Practitioner; Visit Provider Nurse Practitioner Family | DX: C50.919 Malignant neoplasm of unspecified site of unspecified female breast (principal); C78.00 Secondary malignant neoplasm of unspecified lung | CPT/HCPCS: 80053; 85025; 86300 ==

== ENCOUNTER 2025-03-28 14:47 | Oncology outpatient (recurring) (ONCR) | payer MEDICARE, SELFPAY ==
[2025-03-28] MEDS: fulvestrant 250 mg/5 mL Syringe 500 MG IM (15:50)
== END 2025-04-09 23:59 | disposition home or self-care (01) ==
PROVIDERS: PCP Nurse Practitioner; Visit Provider Nurse Practitioner Family
DX: Z51.11 Encounter for antineoplastic chemotherapy (principal); C50.411 Malignant neoplasm of upper-outer quadrant of right female breast; C78.01 Secondary malignant neoplasm of right lung; C43.59 Malignant melanoma of other part of trunk; M81.0 Age-related osteoporosis without current pathological fracture; D64.9 Anemia, unspecified; R03.0 Elevated blood-pressure reading, without diagnosis of hypertension; Z17.0 Estrogen receptor positive status [ER+]; Z79.818 Long term (current) use of other agents affecting estrogen receptors and estrogen levels; Z90.11 Acquired absence of right breast and nipple; Z79.899 Other long term (current) drug therapy
CPT/HCPCS: 96402; 99214; J9395

== ENCOUNTER → 2025-04-02 10:32 | Outpatient (BNVA) | payer MEDICARE, SELFPAY | PROVIDERS: PCP Nurse Practitioner; Visit Provider Dermatology | DX: R21 Rash and other nonspecific skin eruption (principal); L29.89 Other pruritus; Z86.006 Personal history of melanoma in-situ; Z08 Encounter for follow-up examination after completed treatment for malignant neoplasm; Z85.828 Personal history of other malignant neoplasm of skin; R57.0 Cardiogenic shock | CPT/HCPCS: 17000; 99214 ==

== ENCOUNTER → 2025-04-30 07:59 | Outpatient (BNVA) | payer MEDICARE, SELFPAY | PROVIDERS: PCP Nurse Practitioner; Visit Provider Nurse Practitioner Family | DX: C50.919 Malignant neoplasm of unspecified site of unspecified female breast (principal); C78.00 Secondary malignant neoplasm of unspecified lung | CPT/HCPCS: 80053; 85025; 86300 ==

== ENCOUNTER 2025-05-02 12:57 | Oncology outpatient (recurring) (ONCR) | payer MEDICARE, SELFPAY ==
--- NOTE | 2025-04-30 16:28 | PC.NURSE ---
This nurse received a critical lab result on this patient with an ANC 0.83 This nurse brought the lab results to the ordering provider Sofie Pelayo NP. Sofie was going to have Libra LPN call the patient for further instructions for Neutropenic pecautions.
== END 2025-05-10 23:59 | disposition home or self-care (01) ==
PROVIDERS: PCP Nurse Practitioner; Visit Provider Nurse Practitioner Family
DX: Z51.11 Encounter for antineoplastic chemotherapy (principal); C50.411 Malignant neoplasm of upper-outer quadrant of right female breast; Z17.0 Estrogen receptor positive status [ER+]; C78.01 Secondary malignant neoplasm of right lung; C79.89 Secondary malignant neoplasm of other specified sites; Z79.818 Long term (current) use of other agents affecting estrogen receptors and estrogen levels; Z79.899 Other long term (current) drug therapy
CPT/HCPCS: 96402; 99213; J9395

== ENCOUNTER → 2025-05-28 12:38 | Outpatient (BNVA) | payer MEDICARE, SELFPAY | PROVIDERS: PCP Nurse Practitioner; Visit Provider Dermatology | DX: R21 Rash and other nonspecific skin eruption (principal); L29.89 Other pruritus; L82.1 Other seborrheic keratosis; L81.4 Other melanin hyperpigmentation; I83.93 Asymptomatic varicose veins of bilateral lower extremities; Z86.006 Personal history of melanoma in-situ; Z08 Encounter for follow-up examination after completed treatment for malignant neoplasm; Z85.828 Personal history of other malignant neoplasm of skin | CPT/HCPCS: 99213 ==

== ENCOUNTER 2025-05-31 10:29 | Oncology outpatient (recurring) (ONCR) | payer MEDICARE, SELFPAY ==
[2025-05-31 12:14] LABS: Hematocrit 34.3 % (36-47); Hemoglobin 11.70 g/dL (11.27-16.99); Mean Corpuscular HGB Conc 34.1 g/dL (30-55); Mean Corpuscular Hemoglobin 36.7 pg (27-33); Mean Corpuscular Volume 107.5 fl (85-98); Nucleated Red Blood Cells % 0 %; Platelet Count 216 10^3/cmm (157-399); Red Blood Count 3.19 10^6/uL (3.85-5.65); White Blood Count 2.57 10^3/uL (3.29-11.43)
[2025-05-31 12:45] LABS: Alanine Aminotransferase 19 U/L (0-33); Albumin Level 4.3 g/dL (3.5-5.2); Alkaline Phosphatase 59 U/L (35-105); Anion Gap 14.1 (5-19); Aspartate Amino Transferase 24 U/L (0-32); Blood Urea Nitrogen 12 mg/dL (8-23); CA 15-3 44.4 U/mL (0-25); Calcium 9.2 mg/dL (8.5-10.5); Carbon Dioxide 26 mmol/L (22-29); Chloride 103 mmol/L (98-107); Creatinine Clr Calc Pharmacy 58.1024; Globulin 2.6 g/dL (1.3-4.6); Glucose 86 mg/dL (65-115); Osmolality Calculated 287 mOsm/kg (285-295); Potassium 4.1 mmol/L (3.5-5.1); Sodium 139 mmol/L (136-145); Total Protein 6.9 g/dL (6.6-8.7)
== END 2025-06-10 23:59 | disposition home or self-care (01) ==
PROVIDERS: Internal Medicine; PCP Nurse Practitioner; Visit Provider Nurse Practitioner Family
DX: Z51.11 Encounter for antineoplastic chemotherapy (principal); C50.411 Malignant neoplasm of upper-outer quadrant of right female breast; Z17.0 Estrogen receptor positive status [ER+]; C78.01 Secondary malignant neoplasm of right lung; C50.919 Malignant neoplasm of unspecified site of unspecified female breast; C79.89 Secondary malignant neoplasm of other specified sites; M81.0 Age-related osteoporosis without current pathological fracture; D64.9 Anemia, unspecified; Z79.818 Long term (current) use of other agents affecting estrogen receptors and estrogen levels; Z90.11 Acquired absence of right breast and nipple; Z79.899 Other long term (current) drug therapy
CPT/HCPCS: 36415; 80053; 85025; 86300; 96402; 99213; J9395

== ENCOUNTER 2025-06-28 11:27 | Oncology outpatient (recurring) (ONCR) | payer MEDICARE, SELFPAY ==
[2025-06-28 12:35] LABS: Hematocrit 34.2 % (36-47); Hemoglobin 11.70 g/dL (11.27-16.99); Mean Corpuscular HGB Conc 34.2 g/dL (30-55); Mean Corpuscular Hemoglobin 37.3 pg (27-33); Mean Corpuscular Volume 108.9 fl (85-98); Nucleated Red Blood Cells % 0 %; Platelet Count 236 10^3/cmm (157-399); Red Blood Count 3.14 10^6/uL (3.85-5.65); White Blood Count 3.07 10^3/uL (3.29-11.43)
[2025-06-28 13:02] LABS: Alanine Aminotransferase 17 U/L (0-33); Albumin Level 4.2 g/dL (3.5-5.2); Alkaline Phosphatase 66 U/L (35-105); Anion Gap 16.0 (5-19); Aspartate Amino Transferase 23 U/L (0-32); Blood Urea Nitrogen 12 mg/dL (8-23); Calcium 9.6 mg/dL (8.5-10.5); Carbon Dioxide 25 mmol/L (22-29); Chloride 103 mmol/L (98-107); Creatinine Clr Calc Pharmacy 57.9791; Globulin 3.0 g/dL (1.3-4.6); Glucose 95 mg/dL (65-115); Osmolality Calculated 290 mOsm/kg (285-295); Potassium 4.0 mmol/L (3.5-5.1); Sodium 140 mmol/L (136-145); Total Protein 7.2 g/dL (6.6-8.7)
[2025-06-28 13:56] LABS: CA 15-3 44.1 U/mL (0-25)
== END 2025-07-10 23:59 | disposition home or self-care (01) ==
PROVIDERS: Internal Medicine; PCP Nurse Practitioner; Visit Provider Nurse Practitioner Family
DX: Z51.11 Encounter for antineoplastic chemotherapy (principal); C50.411 Malignant neoplasm of upper-outer quadrant of right female breast; Z17.0 Estrogen receptor positive status [ER+]; C78.00 Secondary malignant neoplasm of unspecified lung; C50.919 Malignant neoplasm of unspecified site of unspecified female breast; C79.89 Secondary malignant neoplasm of other specified sites; M81.0 Age-related osteoporosis without current pathological fracture; D64.9 Anemia, unspecified; Z79.818 Long term (current) use of other agents affecting estrogen receptors and estrogen levels; Z90.11 Acquired absence of right breast and nipple; Z79.899 Other long term (current) drug therapy
CPT/HCPCS: 36415; 80053; 83615; 85025; 86300; 96402; 99214; J9395

== ENCOUNTER → 2025-07-24 08:03 | Outpatient (BNVA) | payer MEDICARE, SELFPAY | PROVIDERS: PCP Nurse Practitioner; Visit Provider Nurse Practitioner Family | DX: C50.411 Malignant neoplasm of upper-outer quadrant of right female breast (principal) | CPT/HCPCS: 80053; 85025; 86300 ==

== ENCOUNTER 2025-07-26 14:34 | Oncology outpatient (recurring) (ONCR) | payer MEDICARE, SELFPAY | END 2025-08-10 23:59 | disposition home or self-care (01) | PROVIDERS: PCP Nurse Practitioner; Visit Provider Nurse Practitioner Family | DX: Z51.11 Encounter for antineoplastic chemotherapy (principal); C50.411 Malignant neoplasm of upper-outer quadrant of right female breast; Z17.0 Estrogen receptor positive status [ER+]; C78.00 Secondary malignant neoplasm of unspecified lung; C79.89 Secondary malignant neoplasm of other specified sites; M81.0 Age-related osteoporosis without current pathological fracture; D64.9 Anemia, unspecified; D70.9 Neutropenia, unspecified; Z79.818 Long term (current) use of other agents affecting estrogen receptors and estrogen levels; Z90.11 Acquired absence of right breast and nipple; Z79.899 Other long term (current) drug therapy | CPT/HCPCS: 96402; 99213; J9395 ==

== ENCOUNTER → 2025-08-21 11:17 | Outpatient (BNVA) | payer MEDICARE, SELFPAY | PROVIDERS: PCP Nurse Practitioner; Visit Provider Nurse Practitioner | DX: Z13.6 Encounter for screening for cardiovascular disorders (principal); C78.00 Secondary malignant neoplasm of unspecified lung; C50.919 Malignant neoplasm of unspecified site of unspecified female breast; E55.9 Vitamin D deficiency, unspecified | CPT/HCPCS: 80053; 80061; 82306; 85025; 86300 ==

== ENCOUNTER 2025-08-27 08:30 | Oncology outpatient (recurring) (ONCR) | payer MEDICARE, SELFPAY ==
--- NOTE | 2025-08-27 08:30 | US_ITS ---
WS: [id number] INDICATION: RIGHT arm muscle pain history of breast cancer RIGHT side mastectomy TECHNIQUE: Ultrasound soft tissue area of concern RIGHT bicep area FINDINGS: Ultrasound soft tissue area of concern RIGHT bicep area LEFT for comparison. No suspicious findings in the RIGHT bicep in the area of concern. No visualized cystic or solid lesions. Normal comparison LEFT bicep area US/US soft tissue/extremity [id number] IMPRESSION: No suspicious findings in the area of concern. If continued concern this be further evaluated with MRI
== END 2025-09-09 23:59 | disposition home or self-care (01) ==
LOC: RAD 08-28 00:01 → ONCMED 08-28 09:29
PROVIDERS: PCP Nurse Practitioner; Visit Provider Nurse Practitioner Family
DX: M79.601 Pain in right arm; Z85.3 Personal history of malignant neoplasm of breast; Z90.11 Acquired absence of right breast and nipple; Z53.9 Procedure and treatment not carried out, unspecified reason
CPT/HCPCS: 76882; 96402; 99214; J9395

== ENCOUNTER → 2025-09-18 11:00 | Outpatient (BNVA) | payer MEDICARE, SELFPAY | PROVIDERS: PCP Nurse Practitioner; Visit Provider Nurse Practitioner | DX: C50.411 Malignant neoplasm of upper-outer quadrant of right female breast (principal); M81.0 Age-related osteoporosis without current pathological fracture | CPT/HCPCS: 80053; 82306; 85025; 86300 ==

== ENCOUNTER 2025-09-20 11:16 | Oncology outpatient (recurring) (ONCR) | payer MEDICARE, SELFPAY ==
[2025-09-20] MEDS: zoledronic acid 5 MG in empty flexible container 1 EACH 400 MG IV (12:43)
== END 2025-10-10 23:59 | disposition home or self-care (01) ==
PROVIDERS: PCP Nurse Practitioner; Visit Provider Nurse Practitioner
DX: Z51.11 Encounter for antineoplastic chemotherapy (principal); C50.411 Malignant neoplasm of upper-outer quadrant of right female breast; Z79.818 Long term (current) use of other agents affecting estrogen receptors and estrogen levels; Z17.0 Estrogen receptor positive status [ER+]; C78.01 Secondary malignant neoplasm of right lung; C79.89 Secondary malignant neoplasm of other specified sites; M81.0 Age-related osteoporosis without current pathological fracture; D64.9 Anemia, unspecified; D70.1 Agranulocytosis secondary to cancer chemotherapy; T45.1X5A Adverse effect of antineoplastic and immunosuppressive drugs, initial encounter; Z79.899 Other long term (current) drug therapy; Z90.11 Acquired absence of right breast and nipple
CPT/HCPCS: 96365; 96402; 99213; J3489; J9395